=== PATIENT | male | born 1965 | race Caucasian/White ===

== ENCOUNTER 2022-06-10 13:06 | Emergency (ER) | payer MEDICAID, OTHER ==
[~2022-06-10] VITALS: Ht 177.8 cm; Wt 83.9 kg
[2022-06-10 13:20] VITALS: BP 141/101
--- NOTE | 2022-06-10 13:47 | NUR ---
RECEIVED PATIENT FROM TRIAGE. PATIENT IS ALERT AND ORIENTD X 4, NO S/S OF ACUTE DISTRESS. PATIENT PRESENTS TO ED WITH COMPLAINTS OF INTERMITTENT BACKPAIN, CURRENTLY 10/10. PATIENT REPORTS DECREASED RANGE OF MOTION D/T PAIN. WILL CONTINUE TO MONITOR
[2022-06-10] MEDS ORDERED: KETOROLAC 30 MG/ML VIAL IM ONE (14:20)
[2022-06-10] MEDS ORDERED: ACET-8386 PO (14:23)
[2022-06-10 14:46] VITALS: BP 148/96
--- NOTE | 2022-06-10 14:47 | NUR ---
PATIENT LEFT ED WITH NO S/S OF ACUTE DISTRESS. VERBALIZED UNDERSTANDING OF HEALTH TEACHINGS.
== END 2022-06-10 14:46 | disposition home or self-care (01) ==
LOC: MED 13:06
DX: M54.41 Lumbago with sciatica, right side (principal); Z79.899 Other long term (current) drug therapy
CPT/HCPCS: 96372; 99283; J1885